=== PATIENT | female | born 1975 | race Caucasian/White ===

== ENCOUNTER 2023-03-20 08:59 | Emergency (ER) | payer OTHER, MEDICAID ==
[~2023-03-20] VITALS: Ht 162.6 cm; Wt 72.0 kg
[2023-03-20 09:06] VITALS: BP 139/99; PULSE 87; RESP 19; TEMP 98; O2SAT 100
[2023-03-20 09:29] LABS: BASOPHILS % 0.8 % (0.0-2.0); EOSINOPHILS % 0.6 % (0.0-5.0); HEMATOCRIT. 39.8 % (36.0-48.0); HEMOGLOBIN. 13.6 g/dL (12.0-16.0); LYMPHOCYTES % 17.3 % (20.0-50.0); MEAN CORPUSCULAR HEMOGLOBIN 31.4 pg (28.0-32.0); MEAN CORPUSCULAR HGB CONC 34.1 g/dL (31.0-37.0); MEAN CORPUSCULAR VOLUME 92.1 fL (81.0-99.0); MEAN PLATELET VOLUME 8.3 fl (7.4-10.4); NEUTROPHILS % 77.3 % (40.0-76.0); PLATELET 196 x1000/uL (130-400); RED BLOOD CELL COUNT 4.32 mill/uL (4.2-5.4); RED CELL DISTRIBUTION WIDTH 13.5 % (11.6-14.6); WHITE BLOOD COUNT 7.5 x1000/uL (4.5-11.0)
[2023-03-20] MEDS ORDERED: ONDANSETRON HCL 4MG/2ML INJ IV NR (09:35)
[2023-03-20 09:37] LABS: CHLORIDE 110 mEq/L (98-107); INDEX HEMOLYSI 1 (1-3); INDEX ICTERIC 1 (1-4); INDEX LIPEMIC 1 (1-3); POTASSIUM 3.8 mEq/L (3.5-5.1); SODIUM 139 mEq/L (136-145)
[2023-03-20 09:44] LABS: ALANINE AMINOTRANSFERASE 18 IU/L (13-61); ALBUMIN 3.9 g/dL (3.4-5.0); ASPARTATE AMINOTRANSFERASE 16 IU/L (15-37); BILIRUBIN TOTAL 0.5 mg/dL (0.1-1.0); CALCIUM 9.3 mg/dL (8.5-10.1); CARBON DIOXIDE 28 mEq/L (21-32); CREATININE 1.2 mg/dL (0.6-1.3); GLUCOSE 97 mg/dL (70-105); PROTEIN TOTAL 8.2 g/dL (6.0-8.3); UREA NITROGEN BLOOD 17 mg/dL (7-21)
== END 2023-03-20 13:33 | disposition home or self-care (01) ==
LOC: ER 09:53
DX: Z53.21 Procedure and treatment not carried out due to patient leaving prior to being seen by health care provider (principal)
CPT/HCPCS: 36415; 80053; 85025; 99281

== ENCOUNTER 2023-03-23 11:43 | Emergency (ER) | payer OTHER, MEDICAID ==
[~2023-03-23] VITALS: Ht 162.6 cm; Wt 68.0 kg
[2023-03-23 11:50] VITALS: BP 144/102; TEMP 98.6; O2SAT 100
[2023-03-23 11:51] VITALS: PULSE 98; RESP 16
[2023-03-23 12:52] LABS: CHLORIDE 109 mEq/L (98-107); INDEX HEMOLYSI 1 (1-3); INDEX ICTERIC 1 (1-4); INDEX LIPEMIC 1 (1-3); POTASSIUM 3.5 mEq/L (3.5-5.1); SODIUM 141 mEq/L (136-145)
[2023-03-23 12:53] LABS: BASOPHILS % 0.5 % (0.0-2.0); HEMATOCRIT. 38.8 % (36.0-48.0); HEMOGLOBIN. 13.3 g/dL (12.0-16.0); LYMPHOCYTES % 11.8 % (20.0-50.0); MEAN CORPUSCULAR HEMOGLOBIN 31.5 pg (28.0-32.0); MEAN CORPUSCULAR HGB CONC 34.3 g/dL (31.0-37.0); MEAN CORPUSCULAR VOLUME 91.7 fL (81.0-99.0); MEAN PLATELET VOLUME 8.9 fl (7.4-10.4); MONOCYTES % 2.4 % (2.0-8.0); NEUTROPHILS % 85.3 % (40.0-76.0); PLATELET 205 x1000/uL (130-400); RED BLOOD CELL COUNT 4.23 mill/uL (4.2-5.4); RED CELL DISTRIBUTION WIDTH 13.3 % (11.6-14.6); WHITE BLOOD COUNT 10.3 x1000/uL (4.5-11.0)
[2023-03-23 13:03] LABS: ALANINE AMINOTRANSFERASE 17 IU/L (13-61); ALBUMIN 4.2 g/dL (3.4-5.0); ASPARTATE AMINOTRANSFERASE 24 IU/L (15-37); BILIRUBIN TOTAL 0.7 mg/dL (0.1-1.0); CALCIUM 9.4 mg/dL (8.5-10.1); CARBON DIOXIDE 25 mEq/L (21-32); PROTEIN TOTAL 8.3 g/dL (6.0-8.3); UREA NITROGEN BLOOD 19 mg/dL (7-21)
[2023-03-23 13:04] LABS: HCG SCREEN NEGATIVE
[2023-03-23 15:29] LABS: GLUCOSE 99 mg/dL (70-105)
== END 2023-03-23 19:45 | disposition left against medical advice (07) ==
LOC: ER 11:43
DX: Z53.21 Procedure and treatment not carried out due to patient leaving prior to being seen by health care provider (principal)
CPT/HCPCS: 36415; 80053; 84703; 85025; 99281

== ENCOUNTER 2023-11-21 09:36 | Emergency (ER) | payer OTHER, MEDICAID ==
[~2023-11-21] VITALS: Ht 165.1 cm; Wt 78.0 kg
[2023-11-21 09:43] VITALS: BP 151/98; PULSE 68; RESP 18; TEMP 98.1; O2SAT 100
[2023-11-21] MEDS: ACETAMINOPHEN 325MG TABLET PO ONE (12:50)
[2023-11-21] MEDS ORDERED: ACET-2708 MT (13:56)
== END 2023-11-21 14:33 | disposition home or self-care (01) ==
LOC: ER 09:36
DX: S60.212A Contusion of left wrist, initial encounter (principal); S20.229A Contusion of unspecified back wall of thorax, initial encounter; I10 Essential (primary) hypertension; Z98.890 Other specified postprocedural states; Z90.710 Acquired absence of both cervix and uterus; Z88.0 Allergy status to penicillin; W01.0XXA Fall on same level from slipping, tripping and stumbling without subsequent striking against object, initial encounter; Y93.89 Activity, other specified; Y92.89 Other specified places as the place of occurrence of the external cause; Y99.8 Other external cause status
CPT/HCPCS: 29125; 73110; 73130; 99284; A4565

== ENCOUNTER 2024-02-03 17:15 | Emergency (ER) | payer MEDICARE, MEDICAID ==
[~2024-02-03] VITALS: Ht 167.6 cm; Wt 75.0 kg
[~2024-02-03 17:15] MED LIST: ACET-2708 MT
[2024-02-03 17:49] VITALS: O2SAT 98
[2024-02-03] MEDS ORDERED: PERM60CR4 TP (20:17)
[2024-02-03] MEDS ORDERED: HYDR453.3 TP (20:17)
[2024-02-03] MEDS ORDERED: NAPR-1176 MT (20:19)
[2024-02-03 20:26] VITALS: BP 152/100; PULSE 67; RESP 16; TEMP 98.5
== END 2024-02-03 20:33 | disposition home or self-care (01) ==
LOC: ER 17:15
DX: R21 Rash and other nonspecific skin eruption (principal); I10 Essential (primary) hypertension; Z90.710 Acquired absence of both cervix and uterus; Z98.890 Other specified postprocedural states; N28.89 Other specified disorders of kidney and ureter
CPT/HCPCS: 99281